=== PATIENT | female | born 1940 | race Caucasian/White ===

== ENCOUNTER 2018-02-24 00:19 | Inpatient (IN) | payer MEDICARE ==
[~2018-02-24] VITALS: Ht 162.6 cm; Wt 73.0 kg
[2018-02-24 00:58] LABS: BASOPHILS % 0.8 % (0.0-2.0); EOSINOPHILS % 3.2 % (0.0-5.0); HEMATOCRIT. 44.7 % (36.0-48.0); HEMOGLOBIN. 15.2 g/dL (12.0-16.0); LYMPHOCYTES % 24.3 % (20.0-50.0); MEAN CORPUSCULAR HEMOGLOBIN 31.4 pg (28.0-32.0); MEAN CORPUSCULAR VOLUME 92.4 fL (81.0-99.0); MEAN PLATELET VOLUME 9.8 fl (7.4-10.4); MONOCYTES % 10.2 % (2.0-8.0); NEUTROPHILS % 61.5 % (40.0-76.0); PLATELET 200 x1000/uL (130-400); RED BLOOD CELL COUNT 4.84 mill/uL (4.2-5.4)
[2018-02-24 01:06] LABS: CHLORIDE 109 mEq/L (98-107)
[2018-02-24 01:11] LABS: D-DIMER 0.66 mg/L FEU (<0.50); INR 0.9; PARTIAL THROMBOPLASTIN TIME 24.5 sec (23.4-31.0); PROTHROMBIN TIME 9.8 sec (9.4-11.6)
[2018-02-24 01:18] LABS: CREATINE KINASE 118 IU/L (26-192)
[2018-02-24 02:24] LABS: CLARITY URINE CLEAR (CLEAR); COLOR URINE YELLOW (YELLOW); KETONES URINE NEGATIVE (NEGATIVE); LEUKOCYTE ESTERASE URINE NEGATIVE (NEGATIVE); NITRITE URINE NEGATIVE (NEGATIVE); OCCULT BLOOD URINE NEGATIVE (NEGATIVE); PROTEIN URINE NEGATIVE (NEGATIVE); SPECIFIC GRAVITY URINE 1.037 (1.005-1.030); UROBILINOGEN URINE 0.2 E.U./dL (0.2-1.0)
[2018-02-24 04:00] VITALS: BP 132/81
[2018-02-24] MEDS ORDERED: LEVO75TA PO (04:55)
[2018-02-24] MEDS ORDERED: RAMI2.5C10 PO (04:55)
[2018-02-24] MEDS ORDERED: TICA60TA MT (04:55)
[2018-02-24] MEDS ORDERED: DEXTROSE 50% WATER 50ML SYRINGE IV PRN (07:00)
[2018-02-24] MEDS: BLOOD SUGAR DIAGNOSTIC STRIP TEST SCH ×3 (07:20→17:20)
[2018-02-24] MEDS: INSULIN LISPRO 100 UNITS/ML SUBCUT SCH ×3 (07:50→17:50)
[2018-02-24 08:00] VITALS: BP 168/78
[2018-02-24] MEDS ORDERED: GUAIFENESIN 200MG/10ML SUGAR FREE UDC PO PRN (08:30)
[2018-02-24] MEDS ORDERED: ONDANSETRON HCL 4MG/2ML VIAL IV PRN (08:30)
[2018-02-24] MEDS ORDERED: DIPHENHYDRAMINE 50MG/ML VIAL IV PRN (08:30)
[2018-02-24] MEDS ORDERED: NA PHOS,M-B/NA PHOS,DI-BA ENEMA 118ML PR PRN (08:30)
[2018-02-24] MEDS ORDERED: MAGNESIUM/ALUMINUM HYDROXIDE/SIMETHICONE 30ML UDC PO PRN (08:30)
[2018-02-24] MEDS ORDERED: CLONIDINE 0.1MG TABLET PO PRN (08:30)
[2018-02-24] MEDS ORDERED: ACETAMINOPHEN 650MG/20.3ML UDC GT PRN (08:30)
[2018-02-24] MEDS ORDERED: HYDROCODONE/ACETAMINOPHEN 10/325MG TABLET PO PRN (08:30)
[2018-02-24] MEDS ORDERED: ACETAMINOPHEN 650MG SUPP PR PRN (08:30)
[2018-02-24] MEDS ORDERED: ACETAMINOPHEN 325MG TABLET PO PRN (08:30)
[2018-02-24] MEDS ORDERED: IPRATROPIUM/ALBUTEROL 0.5-3(2.5)MG/3ML NEB INH PRN (08:30)
[2018-02-24] MEDS ORDERED: DOCUSATE SODIUM 100MG CAPSULE PO PRN (08:30)
[2018-02-24] MEDS ORDERED: RAMIPRIL 2.5 MG PO SCH (09:00)
[2018-02-24] MEDS ORDERED: TICAGRELOR MT SCH (09:00)
[2018-02-24] MEDS ORDERED: LEVOTHYROXINE SODIUM 75MCG TABLET PO SCH (09:00)
[2018-02-24] MEDS ORDERED: LISINOPRIL 10MG TABLET PO SCH (09:14)
[2018-02-24 09:36] LABS: BASOPHILS % 0.5 % (0.0-2.0); HEMATOCRIT. 46.3 % (36.0-48.0); HEMOGLOBIN. 15.6 g/dL (12.0-16.0); LYMPHOCYTES % 20.8 % (20.0-50.0); MEAN CORPUSCULAR HEMOGLOBIN 31.3 pg (28.0-32.0); MEAN CORPUSCULAR VOLUME 93.1 fL (81.0-99.0); MEAN PLATELET VOLUME 10.2 fl (7.4-10.4); MONOCYTES % 7.8 % (2.0-8.0); NEUTROPHILS % 67.9 % (40.0-76.0); PLATELET 197 x1000/uL (130-400); RED BLOOD CELL COUNT 4.98 mill/uL (4.2-5.4); RED CELL DISTRIBUTION WIDTH 14.6 % (11.6-14.6)
[2018-02-24 09:44] LABS: CHLORIDE 110 mEq/L (98-107)
[2018-02-24] MEDS ORDERED: ASPIRIN 81MG TABLET PO SCH (10:05)
[2018-02-24] MEDS: HYDROCODONE/ACETAMINOPHEN 5/325MG TABLET PO PRN ×2 (10:36→18:27)
[2018-02-24] MEDS ORDERED: NITROGLYCERIN 0.4MG TABLET SL SL PRN (11:30)
[2018-02-24] MEDS ORDERED: HEPARIN 5000 UNITS/ML VIAL IV SCH (11:30)
[2018-02-24] MEDS ORDERED: TICAGRELOR 60 MG TABLET PO SCH ×2 (11:30→17:00)
[2018-02-24] MEDS ORDERED: METOPROLOL TARTRATE 50MG TABLET PO SCH (11:45)
[2018-02-24 12:00] VITALS: BP 124/65
[2018-02-24] MEDS: NITROGLYCERIN 0.2MG/HR PATCH TOP SCH ×2 (12:00→18:21)
[2018-02-24] MEDS ORDERED: SODIUM CHLORIDE 0.45% 1,000 ML IV SCH ×2 (12:15)
[2018-02-24] MEDS ORDERED: HEPARIN 25,000 UNITS PREMIX 500 ML IV SCH (12:15)
[2018-02-24] MEDS ORDERED: HEPARIN 5000 UNITS/ML VIAL IV PRN ×2 (12:30)
[2018-02-24] MEDS ORDERED: HEPARIN 25,000 UNITS PREMIX 500 ML IV PRN (13:30)
[2018-02-24] MEDS ORDERED: NITROGLYCERIN OINT 1GM/INCH UDPKT TD SCH (14:30)
[2018-02-24 16:00] VITALS: BP 144/72
[2018-02-24] MEDS ORDERED: TICAGRELOR 90 MG TABLET PO SCH (17:00)
[2018-02-24 17:35] VITALS: BP 144/72
[2018-02-24 20:00] VITALS: BP 150/74
[2018-02-24] MEDS ORDERED: ATORVASTATIN CALCIUM 10MG TABLET PO SCH (21:00)
[2018-02-25] MEDS ORDERED: LISINOPRIL 20MG TABLET PO SCH (09:00)
== END 2018-02-24 20:00 | disposition short-term general hospital (02) | DRG 198 ==
LOC: ER 00:19 → 6WST 02:46 → EDBEDREQ 02:48 → ENRESERV 02:55
PROVIDERS: ADMIT Family Medicine; ATTEND Family Medicine
DX: I24.9 Acute ischemic heart disease, unspecified (principal); E11.9 Type 2 diabetes mellitus without complications; E87.1 Hypo-osmolality and hyponatremia; I25.119 Atherosclerotic heart disease of native coronary artery with unspecified angina pectoris; E03.9 Hypothyroidism, unspecified; I10 Essential (primary) hypertension; E78.5 Hyperlipidemia, unspecified; R68.84 Jaw pain; F60.89 Other specific personality disorders; Z88.9 Allergy status to unspecified drugs, medicaments and biological substances; Z95.5 Presence of coronary angioplasty implant and graft
CPT/HCPCS: 36415; 71045; 80048; 80053; 81003; 82550; 82962; 83690; 83880; 84484; 85025; 85379; 85610; 85730; 93005; 99285; C1893; J1644; J7050